=== PATIENT | male | born 1940 | race Caucasian/White ===

== ENCOUNTER 2016-10-24 12:53 | Day surgery (SDC) | payer MEDICARE ==
[2016-10-24] MEDS ORDERED: CEFAZOLIN SODIUM 2 GRAM PREMIX 100 ML IV PRN (13:00)
[2016-10-24] MEDS ORDERED: LACTATED RINGERS 0 ML ONE (13:30)
[2016-10-24] MEDS ORDERED: IV START KIT ONE (13:31)
[2016-10-24] MEDS ORDERED: SODIUM CHLORIDE 0.9% 1,000 ML ONE (13:35)
[2016-10-24] MEDS ORDERED: OPIUM/BELLADONNA ALKALOIDS 1 EACH SUP PR ONE (16:01)
[2016-10-24] MEDS ORDERED: SPINAL PROCEDURAL TRAY 1 EACH ONE (16:12)
[2016-10-24] MEDS ORDERED: BUPIVACAINE 0.75% SPINAL AMPUL 2 ML ONE (16:12)
[2016-10-24] MEDS ORDERED: FENTANYL 100 MCG/2 ML VIAL ONE (16:13)
[2016-10-24] MEDS ORDERED: MIDAZOLAM HCL 5 MG/5 ML VIAL ONE ×3 (16:13→17:23)
[2016-10-24] MEDS ORDERED: MORPHINE SULFATE 4 MG/ML SYRINGE IV PRN ×2 (16:59→20:19)
[2016-10-24] MEDS ORDERED: ATROPINE SULFATE 0.4 MG/1 ML VIAL IV PRN (16:59)
[2016-10-24] MEDS ORDERED: PROMETHAZINE HCL 25 MG/ML VIAL IM PRN (16:59)
[2016-10-24] MEDS ORDERED: ONDANSETRON 4 MG/2ML 2 ML VIAL IV PRN ×2 (16:59→18:41)
[2016-10-24] MEDS ORDERED: NALOXONE HCL 0.4 MG/ML VIAL IV PRN (16:59)
[2016-10-24] MEDS ORDERED: LABETALOL HCL 5 MG/ML 20ML VIAL IV PRN (16:59)
[2016-10-24] MEDS ORDERED: MEPERIDINE 25 MG/ML SYRINGE IV PRN (16:59)
[2016-10-24] MEDS ORDERED: LACTATED RINGERS 1,000 ML IV SCH (17:00)
[2016-10-24] MEDS ORDERED: MORPHINE SULFATE 2 MG/ML SYRINGE IV PRN (18:41)
[2016-10-24] MEDS ORDERED: OPIUM/BELLADONNA ALKALOIDS 1 EACH SUP PR PRN (18:41)
[2016-10-24] MEDS ORDERED: BISACODYL 10 MG SUP PR PRN (18:41)
[2016-10-24] MEDS ORDERED: HYDROCODONE/ACETAMINOPHEN 5/325MG TABLET PO PRN (18:41)
[2016-10-24] MEDS ORDERED: BLISTEX LIPSTICK 1 EACH TP PRN (18:41)
[2016-10-24] MEDS ORDERED: MENTHOL/CETYLPYRD 1 EACH LOZENGE PO PRN (18:41)
[2016-10-24] MEDS ORDERED: MORPHINE SULFATE 10 MG/ML SYRINGE IV PRN (20:20)
[2016-10-24 20:39] VITALS: BMI 33.1
[2016-10-24] MEDS ORDERED: RANITIDINE HCL 300 MG PO SCH (21:00)
[2016-10-24] MEDS ORDERED: POLYETHYLENE GLYCOL 3350 17 G POWD.SUSP PO SCH (21:00)
[2016-10-24] MEDS ORDERED: NIACIN 250 MG CAPSULE.ER PO SCH (21:00)
[2016-10-24] MEDS ORDERED: FAMOTIDINE 20 MG TABLET PO SCH (21:00)
[2016-10-24] MEDS: PHENAZOPYRIDINE HCL 200 MG TABLET PO SCH (21:28)
[2016-10-24] MEDS: METFORMIN HCL 1,000 MG TABLET PO SCH (21:28)
[2016-10-24] MEDS: DOCUSATE SODIUM 250 MG CAPSULE PO SCH (21:28)
[2016-10-25 08:12] VITALS: BP 163/95
--- NOTE | 2016-10-25 08:12 | OP ---
Seamus Dumont [id number] DATE OF SURGERY: 10/24/2016 SURGEON: Maximilian Jordan MD. WINDING MACHINE OPERATOR: None. ANESTHESIA: Spinal. 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 PROCEDURE: Transurethral resection of the prostate, revision (difficult). SPECIMENS: Prostatic tissue. INDICATIONS: The patient is a 76-year-old man with history of prior transurethral resection of the prostate. He was seen in 2014 for hematuria and noted to have substantial regrowth of the prostate and advised to undergo revision at that time and then used Finasteride subsequently. He did not take this advise and delayed dealing with it until he presented again recently with persistent gross hematuria and clots per urethra. The cystoscopy demonstrated a marked prostatic enlargement now with fusion across the midline and multiple sites of bleeding along the prostatic fossa. FINDINGS: The anterior urethra appears normal aside from superficial scarring along its course. Membranous urethra appeared to be intact. Prostatic fossa is greater than 5 cm in length and notable for regrowth of prostatic tissue on both sides with cross fusion between the lobes proximal to the veru in the middle of the gland. The passage into the bladder was assessable up above this fusion site. Multiple sites have edema from recent bleeding were noted. The tissue itself was markedly hypervascular and the difficulties of this case resulted in relatively prolonged resection and efforts to control bleeding along the way. It is estimated that the duration of this revision was at least twice as long as usually would be encountered. PROCEDURE IN DETAIL: The patient identified and brought to the operating room where spinal anesthetic was applied. He was then placed in the dorsolithotomy position. The genital region was prepared and draped sterilely. The distal urethra was calibrated with Harrison sounds up to 32 [place]ian. A 28-Namibian resectoscope sheath was introduced to the visual obturator. Findings are reported above. Using a loop bipolar system and saline as an irrigant, we began resection near the bladder neck on the right where most of the recent bleeding appears to have occurred and resected downward and inferiorly toward the cross bridging region and then eventually took down the entire cross bridging region until we reached the strip of tissue from the bladder neck down to the veru. We then continued resection on both sides, working upwards. The majority of the anterior aspect was still patent from previous resection and required little care, however, resection of the regular tissue regrowth which was consistently hypervascular throughout required a prolonged resection with much more cautery effort than would normally be the case. Eventually, the fossa was sufficiently opened, chips of tissue were removed, and bleeding sufficiently controlled. The resectoscope at this point was removed and a 24 [place]ian 3-way urethra catheter was placed and left to gravity drainage with 40 mL of water in its balloon. Three way saline irrigation was instituted. Estimated blood loss around 100 mL. Resection time approximately 70 minutes. No early complications. Patient tolerated the procedure well and was taken in stable condition to the postanesthesia room. JOB: [id number] CC: Dr. Grace Gillespie
[2016-10-25] MEDS: METFORMIN HCL 1,000 MG TABLET PO SCH (08:39)
[2016-10-25] MEDS: DOCUSATE SODIUM 250 MG CAPSULE PO SCH (08:39)
[2016-10-25] MEDS: PHENAZOPYRIDINE HCL 200 MG TABLET PO SCH (08:39)
[2016-10-25] MEDS ORDERED: HYDROCHLOROTHIAZIDE 25 MG TABLET PO SCH (09:00)
[2016-10-25] MEDS ORDERED: ALLOPURINOL 300 MG TABLET PO SCH (09:00)
[2016-10-25] MEDS ORDERED: LISINOPRIL 20 MG TABLET PO SCH (09:00)
[2016-10-25] MEDS ORDERED: SIMVASTATIN 10 MG TABLET PO SCH (21:00)
--- NOTE | 2016-10-27 14:29 | SURGPATH ---
[facility] [address] [place] [id number] Patient Name: RAFAEL LIMA MR#: [id number] : 1940 Gender: M Specimen #: [id number] Collected: 10/24/2016 Received: 10/26/2016 Reported: 10/27/2016 Submitting Phys: VERNELL SANTORO Copy To Phys: YESY HADDAD [facility] Clinical History / Pre-Operative Diagnosis: Bladder OUTLET obstruction, recurrent with prostatic bleeding Specimen Source / Surgical Procedure Performed: Prostate chips Interpretation: PROSTATE CHIPS, TRANSURETHRAL RESECTION: - FIBROGLANDULAR PROSTATE TISSUE SHOWING FIBROMUSCULAR HYPERPLASIA AND MILD CHRONIC INFLAMMATION. - NO EVIDENCE OF HIGH-GRADE PROSTATIC INTRAEPITHELIAL NEOPLASIA OR MALIGNANCY. Electronically Signed Out Genaro Clements M.D., Ph.D. Gross Description: The specimen is received in formalin labeled with the patient's name and "prostate chips". The specimen consists of a 32 g, 8.0 x 8.0 x 4.0 cm aggregate of wesley rubbery tissue fragments. A-J. service representative, approximately 65% MAR Mccarty Microscopic Description: Examination of multiple sections from the transurethrally resected prostate chips shows fibroglandular prostate tissue with fibromuscular hyperplasia and mild chronic inflammation. There is no evidence of high-grade prostatic intraepithelial neoplasia or malignancy. 1: [id number] N40.1
== END 2016-10-25 11:07 | disposition home or self-care (01) ==
LOC: SDC 12:53 → MS 19:00 → SDC 10-25 11:07
PROVIDERS: ATTEND Urology
PROC: 0VT08ZZ Resection of Prostate, Via Natural or Artificial Opening Endoscopic (ICD-10-PCS; principal; 2016-10-24)
DX: N40.1 Benign prostatic hyperplasia with lower urinary tract symptoms (principal); N13.8 Other obstructive and reflux uropathy; N42.1 Congestion and hemorrhage of prostate; R31.9 Hematuria, unspecified; Z87.891 Personal history of nicotine dependence; E11.9 Type 2 diabetes mellitus without complications; K21.9 Gastro-esophageal reflux disease without esophagitis; E78.5 Hyperlipidemia, unspecified; I10 Essential (primary) hypertension; E66.9 Obesity, unspecified; M10.9 Gout, unspecified
CPT/HCPCS: 52630; A9270 ×10; J3010; J2250 ×3; J7030